=== PATIENT | female | born 1985 | race Caucasian/White ===

== ENCOUNTER 2018-12-21 18:43 | Inpatient (IN) ==
[2018-12-21 19:34] LABS: Random Urine Total Protein 18.5 mg/dL (0-12)
--- NOTE | 2018-12-21 22:00 | HP ---
Chief Complaint - Chief Complaint Date of Service: 12/21/18 Time of Service: 21:49 Chief Complaint: heartburn History of Present Illness: The patient has had a diagnosis of gestational hypertension this . Once she was getting close to 37 weeks her blood pressures were normal and her provider had a discussion with her to delay induction until 39 weeks due to normal blood pressures. She presented to the office today complaining of heart burn that was not going away with zantac and the patient has not had any heart burn this . For this reason pre-eclampsia labs were obtained and her UP:CR was 295. For this reason she was asked to come in to triage for further evaluation. She denies regular ctx, vb or lof. Fetus is active. Medical History (Updated 12/21/18 @ 15:38 by Chana Sprague MD) Hypothyroid (Chronic) History of delivery, currently (Chronic) Anxiety (Chronic) History of gestational hypertension (Resolved) Generalized anxiety disorder Onset Date: 04/16/12 Hypothyroidism Onset Date: Unknown Insomnia Onset Date: Unknown Wears glasses Onset Date: Unknown Gallstones Onset Date: Unknown Gestational hypertension Onset Date: ~2015 delivery Onset Date: ~2015 [place] teeth extracted h/o finger surgery Left middle finger- pinned Surgical History: Surgical History (Updated 06/10/18 @ 15:47 by Dm Varela RN) History of cholecystectomy Onset Date: ~2010 Tumor removal Onset Date: Unknown Childhood-back of neck Family History: Family History (Updated 06/24/18 @ 13:16 by Jazmyn Dutta RN) Mother Thyroid disease Father Pulmonary embolism Sister Anxiety Social History: Preferred Language Romansh Smoking Status Former smoker (Last Updated 12/21/18 @ 15:39 by Chana Sprague MD) No Social History Section defined Review Of Systems (GEN) - Review of Systems Generalized/Overall Review: Present: No Symptoms Reported Abdominal: Present: Other - heart burn Misc: All systems neg except as marked Allergies/Adverse Reactions: Allergies Allergy/AdvReac Type Severity Reaction Status Date / Time No Known Allergies Allergy Verified 12/21/18 15:06 Home Medications: HOME MEDICATIONS Vits96/Iron Fum/Folic [ S] 1 tab PO DAILY 09/20/15 [Last Taken 12/21/18 07:00] aspirin 81 mg tablet,delayed release 81 mg PO DAILY 08/19/18 [Last Taken 9 07:00] levothyroxine 75 mcg tablet 75 mcg PO DAILY #30 tab 10/27/18 [Last Taken 12/21/18 07:00] Exam - Exam Constitutional: Present: Alert, Oriented x3, Cooperative, No distress Respiratory: Present: lungs clear, normal breath sounds Cardiovascular/Chest: Present: regular rate, rhythm, no murmur Abdomen: Present: soft, nontender, nondistended Extremity: Present: non-tender, no calf tenderness Skin Exam: Present: normal color, warm/dry, no cyanosis Appearance: Present: appropriate appearance Eye contact: Present: cooperative Thoughts: Present: normal thought pattern Diagnostic Studies: Abnormal Lab Results 12/21/18 Range/Units 19:20 U Random Total Protein 18.5 H (0-12) mg/dL U [place] Prot/Creat Ratio 238 H (0-199) mg/gm Laboratory Results Ur Random Creatinine 77.8 mg/dL (60-200) 12/21/18 19:20 U Random Total Protein 18.5 mg/dL (0-12) H 12/21/18 19:20 U [place] Prot/Creat Ratio 238 mg/gm (0-199) H 12/21/18 19:20 Assessment/Plan - Narrative Narrative: 33 year old @ 37w 6d with gestational hypertension I recommend induction of labor given elevated blood pressures and gestational age beyond 37 weeks. The patient reports that she feels that everything is fine with her and her baby. I again explained the different diagnoses and the rationale for induction. She and her will discuss and decide.
[2018-12-21] MEDS ORDERED: ONDANSETRON 4 MG TAB.RAPDIS PO PRN (22:43)
[2018-12-21] MEDS ORDERED: LIDOCAINE HCL 50 ML VIAL PERI PRN (22:43)
[2018-12-21] MEDS ORDERED: OXYTOCIN/DEXTROSE 5%-WATER 30 UNITS/500 ML BAG IV ONE (22:43)
[2018-12-21] MEDS ORDERED: RINGER'S SOLUTION,LACTATED 1,000 ML IV PRN (22:43)
[2018-12-21] MEDS ORDERED: NALBUPHINE HCL 10 MG/ML AMPUL IV PRN ×2 (22:43)
--- NOTE | 2018-12-21 22:43 | PN ---
[facility]ero Note - Interim Date: 12/21/18 Time: 22:42 Narrative: 12/21/18 22:42 Had a discussion with the patient again as she is nervous about induction. IOL explained in detail and patient consents to IOL.
[2018-12-21] MEDS ORDERED: PENICILLIN G POTASSIUM 5 MILLIONUNT in DEXTROSE 5 % IN WATER 100 ML IV ONE ×2 (23:00)
[2018-12-21 23:17] LABS: Cocaine Ur Negative (NEGATIVE); Urine Barbiturate Negative (NEGATIVE); Urine Benzodiazepines Negative (NEGATIVE); Urine Opiates Negative (NEGATIVE); Urine PCP Negative (NEGATIVE); Urine THC Negative (NEGATIVE)
[2018-12-21 23:26] LABS: Hematocrit 39.5 % (37.0-47.0); Mean Cell Volume 87.6 fl (78-100); Mean Corpuscular Hemoglobin 28.8 pg (27-31); Mean Corpuscular Hgb Conc 32.9 g/dl (32-36); Mean Platelet Volume 9.2 fl (8-12.5); Neutrophil # 6.9 K/mm3 (1.3-6.0); Neutrophil % 66.7 % (42-75.0); Platelet Count 305 K/mm3 (150-450); Red Blood Count 4.51 M/mm3 (4.2-5.4); Red Cell Distribution Width 13.8 % (11.5-14.0); White Blood Count 10.3 K/mm3 (4.0-10.5)
[2018-12-21 23:45] LABS: Albumin * 2.5 gm/dl (3.4-5.0); Anion Gap 17.4 mmol/L (6.8-13.8); BUN/Creatinine Ratio 13.4 (9.0-21.6); Bilirubin, Total 0.4 mg/dL (0.0-1.1); Ca. Corrected For Albumin 10.3 mg/dL (8.4-10.2); Calcium * 9.4 mg/dL (7.9-10.9); Carbon Dioxide 21.1 mmol/L (24-32.6); Potassium 3.5 mmol/L (3.4-4.6); Total Protein 6.7 gm/dL (6.2-8.2)
[2018-12-22] MEDS: MISOPROSTOL 100 MCG TABLET VG PRN ×2 (00:04→03:48)
[2018-12-22] MEDS: RINGER'S SOLUTION,LACTATED 1,000 ML IV ONE ×2 (00:04→10:59)
[2018-12-22] MEDS ORDERED: ACETAMINOPHEN 500 MG TABLET PO ONE (00:13)
[2018-12-22] MEDS: PENICILLIN G POTASSIUM 2.5 MILLIONUNT in DEXTROSE 5 % IN WATER 100 ML IV SCH ×12 (03:47→23:54)
--- NOTE | 2018-12-22 08:47 | PN ---
Progess Note - Interim Date: 12/22/18 Time: 08:46 Narrative: 12/22/18 08:46 Patient is comfortable cvx is 1.5/60/-4 The head is ballotable and thus not safe for AROM at this point Start pitocin when able FHT cat 1
[2018-12-22] MEDS ORDERED: ONDANSETRON HCL/PF 2 MG/ML VIAL IV PRN (11:08)
[2018-12-22] MEDS ORDERED: NALOXONE HCL 1 MG/1 ML SYRG IV PRN (11:08)
[2018-12-22] MEDS ORDERED: BUPIVACAINE HCL/0.9 % NACL/PF 250 ML EP PRN (11:08)
[2018-12-22] MEDS ORDERED: BUPIVACAINE HCL/PF 30 ML VIAL EP SCH (11:15)
--- NOTE | 2018-12-22 11:43 | ANES ---
Anesthesia Pre Procedure Eval Vitals/Labs: Last Vital Signs Temp 36.7 C 12/21/18 19:00 Pulse 82 12/21/18 19:00 Resp 20 12/21/18 19:00 BP 173/88 H 12/21/18 19:00 Pulse Ox 99 12/21/18 19:00 HOME MEDICATIONS Vits96/Iron Fum/Folic [ S] 1 tab PO DAILY 09/20/15 [Last Taken 12/21/18 07:00] aspirin 81 mg tablet,delayed release 81 mg PO DAILY 08/19/18 [Last Taken 12/21/18 07:00] levothyroxine 75 mcg tablet 75 mcg PO DAILY #30 tab 10/27/18 [Last Taken 12/21/18 07:00] Allergies/Adverse Reactions: Allergies Allergy/AdvReac Type Severity Reaction Status Date / Time No Known Allergies Allergy Verified 12/21/18 15:06 - Planned Procedure Planned Procedure: Labor epidural Medication List Reviewed:: Yes Allergies Verified: Yes Medical History (Updated 12/21/18 @ 22:00 by Chana Sprague MD) Hypothyroid (Chronic) History of delivery, currently (Chronic) Anxiety (Chronic) History of gestational hypertension (Resolved) Generalized anxiety disorder Onset Date: 04/16/12 Hypothyroidism Onset Date: Unknown Insomnia Onset Date: Unknown Wears glasses Onset Date: Unknown Gallstones Onset Date: Unknown Gestational hypertension Onset Date: ~2015 delivery Onset Date: ~2015 [place] teeth extracted h/o finger surgery Left middle finger- pinned Surgical History (Updated 12/21/18 @ 22:00 by Chana Sprague MD) History of cholecystectomy Onset Date: ~2010 Tumor removal Onset Date: Unknown Childhood-back of neck Family History (Updated 06/24/18 @ 13:16 by Jazmyn Dutta RN) Mother Thyroid disease Father Pulmonary embolism Sister Anxiety - Cardiovascular Tolerate Activity: Fair Heart Sounds: S1 & S2, Regular - Anesthesia Assessment and Plan ASA Class: PS, III Anesthesia Type Plan: Epidural
--- NOTE | 2018-12-22 12:04 | ANES ---
Post Anesthesia Assessment - Vital Signs Vitals: Last Vital Signs Temp 36.7 C 12/21/18 19:00 Pulse 82 12/21/18 19:00 Resp 20 12/21/18 19:00 BP 173/88 H 12/21/18 19:00 Pulse Ox 99 12/21/18 19:00 Airway Patency: Normal - Mental Status Level Of Consciousness: Awake - N/V Assessment Nausea/Vomiting Presence: None Dehydration:: No
--- NOTE | 2018-12-22 12:04 | ANES ---
Anesthesia Procedure Note Procedure Note: ANESTHESIA PROCEDURE NOTE Date of Procedure: 12/22/2018. Time of procedure: 1145. Performed by: Michelet Escalona CRNA [employer] Attorney: None. Preprocedure diagnosis: Active labor. Post procedure diagnosis: Same. Procedure: Insertion of labor epidural. Indications: The patient is a 33 -year-old female in active labor requesting labor epidural for pain management. Findings: See below. Details of the procedure: The patient was placed in a sitting position. DuraPrep as well as Betadine swabs X3 was applied to the patient's back. Patient was then draped in a sterile fashion. Lidocaine 1% was infiltrated to the skin and subcutaneous tissues at the level of the L3-4 interspace. The epidural space was identified using a 18-gauge Tuohy needle with [id number] technique. Epidural catheter was inserted to a depth of 13 centimeters at skin. Negative test dose was elicited using 3 mL of 1.5% preservative-free lidocaine plus epinephrine 1 200,000. The epidural catheter was then taped and secured in place. A loading dose of 8 mL of 0.25% preservative-free bupivacaine was administered to the epidural catheter after negative aspiration for blood and CSF. EBL: Minimal. Fluids: N/A. Specimen: N/A. Post procedure condition: The patient tolerated the procedure well. No complications were noted. Thank you for this consultation. Michelet Escalona CRNA
--- NOTE | 2018-12-22 12:54 | PN ---
Progess Note - Interim Date: 12/22/18 Time: 12:52 Narrative: 12/22/18 12:52 cvx is 4/70/-3 AROM for bloody fluid with a clot coming out so this is suspicious for placental abruption. Will send placenta to pathology after delivery Continue pitocin FHT is cat II
[2018-12-22] MEDS ORDERED: oxyCODONE HCL/ACETAMINOPHEN 1 TAB TABLET PO PRN (14:39)
[2018-12-22] MEDS ORDERED: SENNOSIDES 8.6 MG TABLET PO PRN (14:39)
[2018-12-22] MEDS ORDERED: OXYTOCIN/DEXTROSE 5%-WATER 30 UNITS/500 ML BAG IV ONE (14:39)
[2018-12-22] MEDS ORDERED: BENZOCAINE/MENTHOL 81 SPRAY CAN TP PRN (14:39)
[2018-12-22] MEDS ORDERED: diphenhydrAMINE HCL 25 MG CAPSULE PO PRN (14:39)
[2018-12-22] MEDS ORDERED: HYDROCORTISONE 30 APPL TUBE TP PRN (14:39)
[2018-12-22] MEDS ORDERED: GLYCERIN/WITCH HAZEL LEAF 40 APPL BOX TP PRN (14:39)
[2018-12-22] MEDS ORDERED: BISACODYL 10 MG SUPP.RECT RC PRN (14:39)
--- NOTE | 2018-12-22 15:45 | OR ---
Operative Report - Dictated Report Narrative: Date of delivery: 12/22/2018 Time of delivery: 1430 Gender: female APGARS: 9/9 weight: 3409 grams Procedure: Description of the procedure: The patient is a 33 year old at 38 weeks 0 days who was induced for gestational hypertension. She received cytotec and pitocin and was augmented with AROM. She progressed to complete dilation. She delivered a viable female infant in the HUSSAIN presentation. The cord was clamped and cut. The placenta was delivered by expression and appeared intact but a surface clot was noted. There were no lacerations noted. EBL: 200 mL Lacerations: none Complications: none History for MU Definition: * The number of deliveries resulting in a live the patient experienced prior to current hospitalization * The previous delivery of live twins or any live multiple gestation is considered one live event. *If primagravida or nulliparous is documented select zero for the number of previous live births. Live Events: 2
[2018-12-22] MEDS ORDERED: ceFAZolin SODIUM 1 GM VIAL IV PRN (16:21)
--- NOTE | 2018-12-22 16:21 | PN ---
Progess Note - Interim Date: 12/22/18 Time: 16:20 Narrative: 12/22/18 16:20 Called to bedside by RN due to fundus being at 4 cm above the umbilicus. Manual uterine exploration undertaken with about 300 mL of clot extracted. No further clots were extracted. Given manual uterine exploration will give 2 grams of Ancef for endometritis prophylaxis
[2018-12-22] MEDS ORDERED: ceFAZolin SODIUM 3 GM in DEXTROSE 5 % IN WATER 100 ML IV PRN ×2 (16:28)
[2018-12-22] MEDS: IBUPROFEN 800 MG TABLET PO PRN ×2 (16:42→21:42)
[2018-12-22] MEDS: oxyCODONE HCL/ACETAMINOPHEN 1 TAB TABLET PO PRN ×2 (16:42→21:42)
[2018-12-22] MEDS: DOCUSATE SODIUM 100 MG CAPSULE PO SCH (21:41)
[2018-12-23] MEDS: oxyCODONE HCL/ACETAMINOPHEN 1 TAB TABLET PO PRN (02:27)
[2018-12-23] MEDS: IBUPROFEN 800 MG TABLET PO PRN ×2 (05:17→14:02)
[2018-12-23] MEDS: DOCUSATE SODIUM 100 MG CAPSULE PO SCH ×3 (07:26→21:00)
[2018-12-23] MEDS: LEVOTHYROXINE SODIUM 75 MCG TABLET PO SCH (07:26)
--- NOTE | 2018-12-23 09:11 | PN ---
Subjective - Date and Time Seen Date: 12/23/18 Time: 09:09 Subjective Narrative: Patient without complaints Objective Objective Narrative: See vital signs - Review of Systems Generalized/Overall Review: Reports: No Symptoms Reported Misc: All systems neg except as marked - Vitals Vitals: Last Vital Signs Temp 36.4 C 12/23/18 06:57 Pulse 98 12/23/18 06:57 Resp 18 12/23/18 06:57 BP 144/75 H 12/23/18 06:57 Pulse Ox 96 12/23/18 06:57 - Exam Constitutional: Present: Alert, Oriented x3, Cooperative, No distress Abdomen: Present: soft, nontender, nondistended - fundus is firm Extremity: Present: non-tender, no calf tenderness Skin Exam: Present: normal color, warm/dry, no cyanosis Appearance: Present: appropriate appearance Eye contact: Present: cooperative Thoughts: Present: normal thought pattern Cauti Physician Documentation - Urinary Catheter Management Urethral (Gill) Urethral Indwelling: No Date of Insertion: 12/22/18 Time of Insertion: 12:30 Date of Removal: 12/22/18 Time of Removal: 14:27 Assessment/Plan Plan Narrative: PPD 1 s/p Doing well Discharge tomorrow
[2018-12-24] MEDS: IBUPROFEN 800 MG TABLET PO PRN (03:39)
[2018-12-24] MEDS: LEVOTHYROXINE SODIUM 75 MCG TABLET PO SCH (06:52)
[2018-12-24] MEDS: DOCUSATE SODIUM 100 MG CAPSULE PO SCH (06:52)
[2018-12-24 07:02] VITALS: BP 147/73
--- NOTE | 2018-12-24 07:33 | PN ---
Subjective - Date and Time Seen Date: 12/24/18 Time: 07:32 Subjective Narrative: Patient without complaints Objective Objective Narrative: See vital signs - Review of Systems Generalized/Overall Review: Reports: No Symptoms Reported Misc: All systems neg except as marked - Vitals Vitals: Last Vital Signs Temp 36.3 C 12/24/18 06:58 Pulse 70 12/24/18 06:58 Resp 18 12/24/18 06:58 BP 147/73 H 12/24/18 06:58 Pulse Ox 98 12/24/18 06:58 - Exam Constitutional: Present: Alert, Oriented x3, Cooperative, No distress Abdomen: Present: soft, nontender, nondistended - fundus nontender Extremity: Present: non-tender, no calf tenderness Skin Exam: Present: normal color, warm/dry, no cyanosis Appearance: Present: appropriate appearance Eye contact: Present: cooperative Thoughts: Present: normal thought pattern Cauti Physician Documentation - Urinary Catheter Management Urethral (Gill) Urethral Indwelling: No Date of Insertion: 12/22/18 Time of Insertion: 12:30 Date of Removal: 12/22/18 Time of Removal: 14:27 Assessment/Plan Plan Narrative: PPD 2 s/p Doing well Discharge today
== END 2018-12-24 11:20 | disposition home or self-care (01) | DRG 807 ==
LOC: OBCLINIC 18:43 → OB 23:05
PROVIDERS: ADMIT Obstetrics & Gynecology; ATTEND Obstetrics & Gynecology
CPT/HCPCS: 36415; 59025; 80053; 80307; 82570; 84155; 84156; 85025; 86850; 88307